=== PATIENT | female | born 1995 | race Caucasian/White ===

== ENCOUNTER 2020-07-14 01:22 | Emergency (ER) | payer OTHER ==
[~2020-07-14] VITALS: Ht 162.6 cm; Wt 63.5 kg
[2020-07-14 01:33] VITALS: BP 120/73
[2020-07-14] MEDS ORDERED: HYDROCODON-ACE1 EAC8 PO (01:48)
[2020-07-14] MEDS ORDERED: DOXYCYCLINE 10100 MG PO (01:48)
== END 2020-07-14 01:56 | disposition home or self-care (01) ==
LOC: M.ERS 01:22
DX: N64.52 Nipple discharge (principal); Z88.1 Allergy status to other antibiotic agents